=== PATIENT | female | born 1945 | race Two or more races ===

== ENCOUNTER 2021-08-14 07:59 | Emergency (ER) | payer OTHER ==
[~2021-08-14] VITALS: Ht 160 cm; Wt 77.6 kg
[2021-08-14] MEDS ORDERED: VALSARTAN80 MG PO (08:07)
[2021-08-14] MEDS ORDERED: ATORVASTATIN CA20 MG PO (08:07)
== END 2021-08-14 17:23 | disposition home or self-care (01) ==
LOC: ER 07:59
DX: K57.90 Diverticulosis of intestine, part unspecified, without perforation or abscess without bleeding (principal); R10.32 Left lower quadrant pain; I10 Essential (primary) hypertension; Z88.0 Allergy status to penicillin